=== PATIENT | female | born 1970 | race Two or more races ===

== ENCOUNTER → 2024-06-06 | Outpatient (CLI) | payer MEDICAID, SELFPAY ==
--- NOTE | 2024-06-06 16:31 | XR_ITS ---
Exam: MRI knee without contrast, left Date and time of exam: June 06, 2024 1724 hours INDICATIONS: Anterior left knee pain joint cracking sound, stiffness swelling beginning 2 months ago after a fall with injury to the knee Technique: Multiple axial, coronal, and sagittal sections on the knee have been obtained. T2-Weighted sagittal, fat-suppressed images, TR 3,500, TE 62, T2 weighted coronal fat-saturated images, TR 3,500, TE 62 Proton density sagittal sections, TR 1800, TE 31. T-1 weighted coronal images, TR 524, TE 13.0 Findings: Medial meniscus anterior horn intact. Medial meniscus, body is horizontal linear tear communicating inferior articular surface near the inner margin, coronal image 14. Posterior horn medial meniscus horizontal linear tear communicating inferior articular surface near the inner margin sagittal image 6. Lateral meniscus anterior horn is intact Lateral meniscus, body is intact Posterior horn lateral meniscus is intact Anterior cruciate ligament high-grade sprain Posterior cruciate ligament appears intact. Knee effusion is moderate including suprapatellar joint plica. Quadriceps and patellar tendons appear intact. There is no evidence of tendinosis. Inflammatory change or fracture of Hoffa's fat pad is not seen. Medial patellar facet demonstrates severe thinning. Lateral patellar facet cartilage demonstrates severe thinning. Trochlear cartilage demonstrates severe thinning. Marrow signal adequate Medial collateral ligament appears intact. No meniscocapsular separation is seen. Illiotibial band and fibular collateral ligament are intact. Biceps femoris tendons appear intact. Medial femoral condylar articular cartilage demonstrates moderate thinning. Lateral femoral condylar articular cartilage demonstratesmoderate thinning. Tibial plateau cartilage demonstrates moderate thinning. Impression: Horizontal linear tear as body and posterior horn medial meniscus High-grade sprain anterior cruciate ligament Severe thinning cartilage patellofemoral joint
== END | disposition home or self-care (01) ==
LOC: SMRI 06-12 09:35
PROVIDERS: PCP Family Medicine; Referring Provider Nurse Practitioner Family; Visit Provider Nurse Practitioner Family
DX: S83.242A Other tear of medial meniscus, current injury, left knee, initial encounter (principal); S83.512A Sprain of anterior cruciate ligament of left knee, initial encounter; W19.XXXA Unspecified fall, initial encounter
CPT/HCPCS: 73721